=== PATIENT | male | born 1985 | race Asian ===

== ENCOUNTER → 2021-06-08 | Outpatient (CLI) | payer OTHER ==
--- NOTE | 2021-06-08 09:12 | RAD ---
EXAM: Abdomen sonogram. HISTORY: Abnormal lipase. TECHNIQUE: Sonographic imaging of the abdomen was performed. COMPARISON: None. FINDINGS: The liver is normal in size. No focal hepatic lesion is seen. The gallbladder is unremarkab le. The common bile duct is normal in caliber. The right kidney, pancreas and inferior vena cava are unremarkable. IMPRESSION: Unremarkable abdomen sonogram. Electronically signed by: Milagro Bedolla MD (06/08/2021 9:09 AM) [id number]
--- NOTE | 2021-06-08 14:24 | RAD ---
HEPATOBILIARY SCAN WITH EJECTION FRACTION 06/08/2021 2:21 PM History: vomiting for 1 year Procedure: Serial static images are obtained of the liver and biliary system in the frontal projectio n following IV administration of 5.1 mCi of Technetium 99m Choletec. After filling of the gallbladd er, 8 ounces of fat-containing nutritional supplement was administered orally and imaging over the ab domen continued. Findings: There is prompt hepatic clearance of tracer from the blood pool. There is homogeneous distr ibution throughout the liver. The gallbladder ejection fraction is estimated at 42% (normal gallblad cy EF is 35% or greater). IMPRESSION: 1. The cystic duct and common bile duct are patent. Negative for acute cholecystitis. 2. The gallbladder ejection fraction is within normal limits Electronically signed by: Inocencio Mcmanus MD (06/08/2021 2:22 PM) [id number]
== END ==
LOC: US 08:38
PROVIDERS: ATTEND Internal Medicine Gastroenterology
DX: R74.8 Abnormal levels of other serum enzymes (principal); R11.10 Vomiting, unspecified
CPT/HCPCS: 76705; 78227; A9537